=== PATIENT | female | born 1995 ===

== ENCOUNTER 2017-05-29 22:51 | Emergency (ER) | payer MEDICAID ==
[2017-05-30 02:09] VITALS: BP 141/86
== END 2017-05-30 02:09 | disposition home or self-care (01) ==
LOC: ED 22:51
DX: N61.1 Abscess of the breast and nipple (principal); J45.909 Unspecified asthma, uncomplicated; Z88.1 Allergy status to other antibiotic agents; Z91.010 Allergy to peanuts
CPT/HCPCS: J0690

== ENCOUNTER 2017-06-03 20:19 | Inpatient (IN) | payer MEDICAID ==
[~2017-06-03] VITALS: Ht 157.5 cm; Wt 122.5 kg
[2017-06-03 21:29] LABS: BASOPHIL % 0.1 % (0-2); PLATELET COUNT 279 x10^3mcL (130-400); RED CELL DISTRIBUTION WIDTH 13.4 % (11.5-14.5)
[2017-06-03 21:35] LABS: CARBON DIOXIDE 27.2 mmol/L (21-32); CREATININE SERUM 1.2 mg/dL (0.6-1.0); POTASSIUM SERUM 4.2 mmol/L (3.5-5.1)
[2017-06-03 21:40] LABS: ALBUMIN 3.4 g/dL (3.4-5.0); BILIRUBIN TOTAL 0.5 mg/dL (0.20-1.00); TOTAL PROTEIN, SERUM 7.9 g/dL (6.4-8.2)
[2017-06-03] MEDS ORDERED: VENTOLIN H0.09 MG/A1 INH (22:47)
[2017-06-03] MEDS ORDERED: CLEOCIN HCL300 MG PO (22:49)
[2017-06-03] MEDS ORDERED: IBUPROFEN400 MG PO (22:49)
[2017-06-03] MEDS ORDERED: KEN025C TOP (22:51)
[2017-06-03] MEDS ORDERED: PROSUD INH (22:52)
[2017-06-03 23:58] LABS: MAGNESIUM 2.2 mg/dL (1.8-2.4); PHOSPHOROUS 4.2 mg/dL (2.5-4.9)
[2017-06-04] VITALS (10 sets, daily range): BP systolic 124–159; BP diastolic 61–114; Ht 157.5 cm; Wt 122.5 kg
[2017-06-04 00:04] LABS: T3 TOTAL 1.23 ng/mL
[2017-06-04 00:05] LABS: CHOLESTEROL/HDL RATIO 2.5; FREE T4 1.1 ng/dL (0.76-1.46); FREE THYROXINE INDEX 3.3 ug/dL (1.4-4.5)
[2017-06-04 03:23] LABS: microscopic required? NO
[2017-06-04 03:57] LABS: urine erythrocyte NEGATIVE (NEGATIVE)
[2017-06-04 04:13] LABS: AMPHETAMINE QUAL UR NONE DETECTED (NEG <=1000)
[2017-06-05 06:00] VITALS: BP 128/91
[2017-06-05 07:03] LABS: CALCIUM 8.5 mg/dL (8.5-10.1); CARBON DIOXIDE 25.5 mmol/L (21-32); CHLORIDE SERUM 106 mmol/L (98-107); GFR1 > 60 mL/min; GLUCOSE SERUM 77 mg/dL (74-106); POTASSIUM SERUM 3.3 mmol/L (3.5-5.1); SODIUM SERUM 142 mmol/L (136-145)
[2017-06-05 07:05] LABS: BASOPHIL % 0.3 % (0-2); PLATELET COUNT 258 x10^3mcL (130-400); RED CELL DISTRIBUTION WIDTH 13.3 % (11.5-14.5)
[2017-06-05 09:12] VITALS: BP 125/83
[2017-06-05] MEDS ORDERED: DICLOXACILLIN500 MG PO (10:56)
[2017-06-05] MEDS ORDERED: LAC PO (10:56)
[2017-06-05 12:35] VITALS: BP 125/83
[2017-06-05 13:54] VITALS: BP 144/94
[2017-06-05] MEDS ORDERED: NORCO1 TA1 PO (15:54)
== END 2017-06-05 16:35 | disposition home or self-care (01) | DRG 720 ==
LOC: ED 20:19 → DU 22:57
PROVIDERS: Emergency Medicine; ADMIT Family Medicine
PROC: 0H9U0ZZ Drainage of Left Breast, Open Approach (ICD-10-PCS; principal; 2017-06-03)
DX: A41.9 Sepsis, unspecified organism (principal); Z68.42 Body mass index [BMI] 45.0-49.9, adult; I10 Essential (primary) hypertension; N61.1 Abscess of the breast and nipple; R73.03 Prediabetes; E87.6 Hypokalemia; J45.909 Unspecified asthma, uncomplicated; E66.01 Morbid (severe) obesity due to excess calories; Z79.1 Long term (current) use of non-steroidal anti-inflammatories (NSAID)
CPT/HCPCS: 82962; 83880; 84439; 90658; 94150; J0295; J1885; J2001; J2405; J2543; J3490; J7030; J7620; Q0092

== ENCOUNTER 2017-08-31 22:17 | Emergency (ER) | payer MEDICAID ==
[~2017-08-31] VITALS: Ht 157.5 cm; Wt 122.0 kg
[~2017-08-31 22:17] MED LIST: CLEOCIN HCL300 MG PO; DICLOXACILLIN500 MG PO; IBUPROFEN400 MG PO; KEN025C TOP; LAC PO; NORCO1 TA1 PO; PROSUD INH; VENTOLIN H0.09 MG/A1 INH
[2017-08-31 22:25] VITALS: Ht 157.5 cm; Wt 122.0 kg
[2017-08-31 23:15] VITALS: BP 139/73
== END 2017-08-31 23:15 | disposition home or self-care (01) ==
LOC: ED 22:17
DX: J45.901 Unspecified asthma with (acute) exacerbation (principal); H66.92 Otitis media, unspecified, left ear; Z88.1 Allergy status to other antibiotic agents; Z91.010 Allergy to peanuts